=== PATIENT | male | born 1965 | race African-American/Black ===

== ENCOUNTER 2019-01-19 15:40 | Observation (INO) | payer OTHER ==
[2019-01-19] VITALS (14 sets, daily range): BP systolic 122–138; BP diastolic 70–89
[~2019-01-19] VITALS: Ht 190.5 cm; Wt 117.0 kg
--- NOTE | ~2019-01-19 | H ---
[address] [address] HISTORY AND PHYSICAL Name: CHAD SHEPHERD Room: [address] Omari Chong#: [id number] Admission: 01/19/19 Attend Phys: Guero Chen MD Discharge: 01/20/19 Date of : 69 Report #: [id number] THIS REPORT FOR: //name// Please refer to the History and Physical performed in the physician's office. By: 0653Medical Records Staff JAMIA /JOEY
[2019-01-19 16:07] LABS: HEMATOCRIT 47.5 % (42.0-52.0); MCH 32.3 pg (26.0-34.0); MCHC 33.7 g/dL (28.0-37.0); MCV 95.7 fL (80.0-100.0); MPV 7.9 fl. (7.2-11.1); RBC 4.97 mil/uL (4.50-6.00); RDW-CV 14.3 % (10.5-14.5); WBC 5.6 thou/uL (4.0-11.0)
[2019-01-19] MEDS ORDERED: ATORVASTATIN CA40 MG PO (16:07)
[2019-01-19] MEDS ORDERED: FLOMAX0.4 MG PO (16:07)
[2019-01-19 16:19] LABS: APTT 27.4 Seconds (25.0-31.3); PROTIME 10.1 Seconds (9.20-11.50)
[2019-01-19 16:25] LABS: CALCIUM 9.6 mg/dL (8.5-10.1); CREATININE 0.9 mg/dL (0.6-1.3); POTASSIUM 4.2 mmol/L (3.5-5.1)
--- NOTE | 2019-01-19 16:32 | EKG ---
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
[2019-01-20] VITALS: BP 126/76
[2019-01-20 04:00] VITALS: BP 125/78
[2019-01-20 05:22] LABS: ALBUMIN 2.9 g/dL (3.4-5.0); ALKALINE PHOSPHATASE 68 U/L (46-116); ANION GAP 8 mmol/L (7-16); BUN 9 mg/dL (7-18); CALCIUM 8.6 mg/dL (8.5-10.1); CHLORIDE 106 mmol/L (98-107); CO2 27 mmol/L (21-32); GLUCOSE 89 mg/dL (70-99); POTASSIUM 3.6 mmol/L (3.5-5.1); SGOT 23 U/L (15-37); SGPT 25 U/L (30-65); SODIUM 141 mmol/L (136-145); TOTAL BILIRUBIN 0.8 mg/dL (<0.1-1.0)
[2019-01-20 05:43] LABS: CHOLESTEROL 171 mg/dL (<200); HDL CHOLESTEROL 52 mg/dL (>40); LDL CHOLESTEROL 106 mg/dL (<100); TC:HDL 3.3 Ratio (Not establshd); TRIGLYCERIDE 66 mg/dL (<150); VLDL 13 mg/dL (<40)
[2019-01-20 05:47] LABS: SERUM ASSESSMENT CLEAR
[2019-01-20 08:00] VITALS: BP 131/77
[2019-01-20 08:33] VITALS: BP 125/78
[2019-01-20] MEDS ORDERED: BRILINTA90 MG PO (08:45)
[2019-01-20] MEDS ORDERED: LOPRESSOR25 PO (08:45)
[2019-01-20] MEDS ORDERED: ASPIR 8181 MG PO (08:45)
[2019-01-20 09:17] VITALS: BP 125/78
--- NOTE | 2019-01-20 11:54 | EKG ---
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: AB : 1965 Requested By: Guero Chen Order Number: [id number] Reading MD: Jhony Keane Measurements Intervals [place] Rate: 68 P: 59 GA: 233 QRS: 38 QRSD: 82 T: 21 QT: 371 QTc: 395 Interpretive Statements Sinus rhythm Prolonged GA interval ST elev, probable normal early repol pattern Compared to ECG 01/19/2019 16:14:38 no change Electronically Signed On 01-20-2019 11:54:23 CDT by Jhony Keane [email or web address] <ELECTRONICALLY SIGNED> By: Jhony Keane MD, [facility] 01/20/19 1154 1908 1908 Jhony Keane MD, [facility] /EPI
--- NOTE | 2019-01-20 11:58 | EKG ---
[place] [address] ELECTROCARDIOGRAM REPORT Name: CHAD SHEPHERD Room: [address]#: [id number] Admission: 01/19/19 Attend Phys: Guero Chen MD Discharge: 01/20/19 Date of : 69 Report #: [id number] THIS REPORT FOR: //name// [facility] Test Date: 2019-01-20 Test Time: 05:23:34 Pat Name: CHAD SHEPHERD Department: Room: [facility] Gender: M Check Clerk: [facility] : 1965 Requested By: Guero Chen Order Number: [id number] Reading MD: Jhony Keane Measurements Intervals [place] Rate: 71 P: 50 TN: 212 QRS: 40 QRSD: 82 T: -11 QT: 368 QTc: 400 Interpretive Statements Sinus rhythm Prolonged [place] interval Borderline T abnormalities, inferior leads Compared to ECG 01/19/2019 16:14:38 no change Electronically Signed On 01-20-2019 11:58:22 CDT by Jhony Keane [email or web address] <ELECTRONICALLY SIGNED> By: Jhony Keane MD, [facility] 01/20/19 1158 0523 0523 Jhony Keane MD, [facility] /EPI
--- NOTE | 2019-01-21 13:47 | EKG ---
[place] [address] ELECTROCARDIOGRAM REPORT Name: CHAD SHEPHERD Room: [address]#: [id number] Admission: 01/19/19 Attend Phys: Guero Chen MD Discharge: 01/20/19 Date of : 69 Report #: [id number] THIS REPORT FOR: //name// [facility] Test Date: 2019-01-20 Test Time: 08:36:55 Pat Name: CHAD SHEPHRED Department: Room: [address] Gender: M Banana Carrier: : 1965 Requested By: Guero Chen Order Number: [id number] Reading MD: Jhony Keane Measurements Intervals [place] Rate: 71 P: 54 WA: 205 QRS: 29 QRSD: 80 T: -2 QT: 379 QTc: 412 Interpretive Statements Sinus rhythm Borderline prolonged [place] interval Borderline T abnormalities, inferior leads Compared to ECG 01/20/2019 05:23:34 No significant changes Electronically Signed On 01-21-2019 13:47:23 CDT by Jhony Keane [email or web address] <ELECTRONICALLY SIGNED> By: Jhony Keane MD, [facility] 01/21/19 1347 0836 0836 Jhony Keane MD, [facility] /EPI
--- NOTE | 2019-01-22 08:39 | D ---
[address] [address] DISCHARGE SUMMARY Name: CHAD SHEPHERD Room: [address] Omari Chong#: [id number] Admission: 01/19/19 Attend Phys: Guero Chen MD Discharge: 01/20/19 Date of : 69 Report #: [id number] THIS REPORT FOR: //name// CC: Dr. Iveth Benitez DISCHARGE DIAGNOSES: 1. Coronary artery disease. 2. Unstable angina. 3. Hyperlipidemia. PROCEDURES DURING THE HOSPITALIZATION: 1. Coronary angiography. 2. Left heart catheterization. 3. Left ventriculography. 4. Percutaneous coronary intervention to the first obtuse marginal branch. 5. Percutaneous coronary intervention to the mid left anterior descending coronary artery. 6. Telemetry monitoring. HOSPITAL COURSE: The patient was admitted to the hospital with progressive unstable angina. Cardiac catheterization revealed multivessel disease. The patient has normal left ventricular systolic function by left ventriculography. Left ventricular end-diastolic pressure was 11 mmHg. The patient underwent percutaneous coronary intervention first to a very large first obtuse marginal branch with a high takeoff from the circumflex that was 99% stenosed. The patient had a 2.5 x 18 mm and a 2.5 x 12 mm stent placed, with excellent result. The patient then had a 90% lesion in the mid LAD, for which a 3.0 x 18 mm stent was placed, with excellent result. The patient has residual disease in a diagonal, mid circumflex and PDA branch of the right coronary artery, which will be considered for staged intervention. The day following intervention, the access site and the radial artery and right groin were well healed. The patient was without cardiac complaint. Vital signs remained stable throughout hospital stay. DISCHARGE MEDICATIONS: Aspirin 81 mg daily, Brilinta 90 mg b.i.d., metoprolol tartrate 25 mg one-half tablet p.o. b.i.d. and atorvastatin 40 mg daily. DISPOSITION: The patient is to follow up at the Cardiology office in 1 week. <ELECTRONICALLY SIGNED> By: Guero Chen MD, FACC 01/22/19 0839 0837 1715Micpark Chen MD, FACC /nt
--- NOTE | 2019-01-22 14:23 | CARD ---
[address] [address] CARDIAC CATH REPORT Name: CHAD SHEPHERD Room: [address] Omari Chong#: [id number] Admission: 01/19/19 Attend Phys: Guero Chen MD Discharge: 01/20/19 Date of : 69 Report #: [id number] THIS REPORT FOR: //name// APPROVED REPORT Study performed: 01/19/2019 15:59:30 Patient Details Patient Status: Out-Patient Room #: The patient is a 54 year-old male Event Personnel Guero Chen Toaster Operator, Viv Hui RN Director Video, Johan Lilly (R) Monitor, Nishant Fishman Scrub, Bruce Rose Profiler Operator Procedures Performed MINAL Place w/wo Plasty Addl BR OM 1., MINAL Place w/wo Plasty Single LAD , , Left Heart Catheterization left ventricular angiography and selective coronary angiography Indication Unstable angina Risk Factors Hypercholesterolemia Admission/Lab Medications/Medications given during procedure Aspirin, Glycoprotein IllbIlla Inhibitors Procedure Narrative The patient was brought electively to the Cardiac Catheterization Laboratory and was prepped and draped in a sterile manner. The right femoral was infiltrated with 2% Lidocaine subcutaneous anesthesia. A 6fr Ultimum Sheath sheath was inserted into the right femoral artery. Coronary angiography was performed using coronary diagnostic catheters. The right coronary system was accessed and visualized with a Diagnostic [place] 4.0 6fr catheter. The left coronary system was accessed and visualized with a DiagnosticTiger 4.0 6fr catheter. The left ventricle was accessed and visualized with a Diagnostic PC: Pig 6fr catheter. Left ventricular/Aortic Valve gradient assessed via catheter pullback. Pre-demployment femoral angiogram was performed . Closure device was deployed with a Fr Angioseal STS 6Fr. The patient tolerated the procedure well and there were no complications associated with the procedure. [place] [address] CARDIAC CATH REPORT Name: CHAD SHEPHERD Room: [address] M.RYuan#: [id number] Admission: 01/19/19 Attend Phys: Guero Chen MD Discharge: 01/20/19 Date of : 69 Report #: [id number] Intraoperative Conscious Sedation Sedation start time: 16:46 Case end Time: 18:12 Fentanyl 75 mcg Versed 3 mg Fluoro Time: 25.6 minutes Dose: DAP 720545 cGycm2 3873 mGy Contrast Type and Amount: Visipaque 500 ml Diagnostic Cath Left Main 0% narrowing LAD 40% proximal narrowing with 75% tubular mid vessel narrowing with 90% stenosis of a subbranch of a prominent septal sled maker Circumflex 80-90% mid vessel stenosis, this being a nondominant vessel with 90% eccentric narrowing throughout the first marginal branch of the circumflex Right Coronary Large dominant vessel with 90% proximal posterior descending stenosis and 40% mid posterolateral branch narrowing Hemodynamics The aortic pressure is 95/71 mmHg with a mean of 83 mmHg. The left ventricular pressure is 104/2 mmHg with a mean of mmHg. The left ventricular end diastolic pressure is 11 mmHg. There was no gradient across the aortic valve upon pullback. PCI Technique Lesion Anticoagulation was achieved with Angiomax. Patient was preloaded with Angiomax IV 17 ml. Percutaneous coronary intervention was performed on the first obtuse marginal branch segment. The lesion stenosis prior to intervention was 90% with SONY 3 flow. A 6F XB LAD 3.5 Guide Catheter was used to engage the ostium. A IG: ProwaterFlex 180CM Interventional Guidewire was used to cross the lesion. BALLOON DILATION A Balloon catheter Mini Trek RX 2.0 X 12 was inserted and inflated up to 12.00atm for 9seconds. Additional Inflation: 14.00atm for 11seconds. Additional Inflation: 14.00atm for 8seconds. STENT DEPLOYMENT A drug-eluting stent [place] RX Stent 2.5X26mm was inserted and inflated up to 10.00atm for 13seconds. Additional Inflation: 15.00atm for 14seconds. Additional Inflation: 16.00atm [place] 11[place]. [place] [address] CARDIAC CATH REPORT Name: CHAD SHEPHERD Room: [address] M.RYuan#: [id number] Admission: 01/19/19 Attend Phys: Guero Chen MD Discharge: 01/20/19 Date of : 69 Report #: [id number] POST STENT DEPLOYMENT BALLOON DILATION A Balloon catheter NC Trek RX 2.5 X 8 was inserted and inflated up to 15.00atm for 7seconds. Additional Inflation: 16.00atm for 9seconds. Additional Inflation: 15.00atm for 9seconds. Final angiography reveals 10 % stenosis with SONY 3 flow. PCI Technique Lesion 2 Percutaneous Coronary Intervention was performed on the mid left anterior descending artery segment. Patient was preloaded with Angiomax IV 17 ml. Percutaneous coronary intervention was performed on the mid left anterior descending artery segment. The lesion stenosis prior to intervention was 75% with SONY 3 flow. A 6F XB LAD 3.5 Guide Catheter was used to engage the ostium. A IG: ProwaterFlex 180CM Interventional Guidewire was used to cross the lesion. Balloon Dilation A Balloon catheter Trek RX 2.75 X 12 was inserted and inflated up to 10.00atm for 12seconds. Additional Inflation: 10.00atm for 9seconds. Stent Deployment A drug-eluting stent Krystian RX Stent 3.0X18mm was inserted and inflated up to 12.00atm for 14seconds. Additional Inflation: 15.00atm for 11seconds. Additional Inflation: 16.00atm for 11seconds. Final angiography reveals 0 % stenosis with SONY 3 flow. Conclusion #1 significant coronary artery disease characterized by the following: A 40% proximal with 75% mid LAD stenosis B 80-90% stenosis of midportion of the nondominant circumflex with 90% eccentric tortuous narrowing throughout the prominent first marginal branch of the circumflex C large dominant right coronary artery with 90% proximal posterior descending branch stenosis and 40% mid posterolateral branch stenosis #2 normal left ventricular systolic function, estimated ejection fraction being 65% [address] [address] CARDIAC CATH REPORT Name: CHAD SHEPHERD Room: [address] Omari Chong#: [id number] Admission: 01/19/19 Attend Phys: Guero Chen MD Discharge: 01/20/19 Date of : 69 Report #: [id number] #3 normal left-sided hemodynamics study #4 successful percutaneous coronary intervention with deployment of sequential drug-eluting stents at the site of 90% stenosis in the first marginal branch of the circumflex with 10% residual narrowing and SONY-3 flow the distal vessel #5 successful percutaneous coronary intervention with deployment of drug-eluting stent at site of 75% tubular mid LAD stenosis with 0% residual narrowing and SONY-3 flow to the distal vessel Recommendations Cardiac Risk Reduction Program Aggressive Medical Therapy Medications Administered Aspirin (any) Ticagrelor Diagnostic Cath Approved by: Guero Chen MD Date/Time: 01/22/2019 14:20:47 <ELECTRONICALLY SIGNED> By: Bruce Rose MD, FACC 01/22/19 1422 142 1422Bruce Rose MD, FACC /INF
== END 2019-01-20 11:30 | disposition home or self-care (01) ==
LOC: M.CL 15:40 → M.TBA-ER 18:30 → M.2W 18:48
PROVIDERS: ADMIT Internal Medicine Cardiovascular Disease
DX: I25.110 Atherosclerotic heart disease of native coronary artery with unstable angina pectoris (principal); E78.5 Hyperlipidemia, unspecified; E78.00 Pure hypercholesterolemia, unspecified

== ENCOUNTER 2019-03-02 13:59 | Observation (INO) | payer OTHER ==
[2019-03-02] VITALS (10 sets, daily range): BP systolic 119–153; BP diastolic 78–99
[~2019-03-02] VITALS: Ht 188 cm; Wt 112.5 kg
--- NOTE | ~2019-03-02 | D ---
[address] [address] DISCHARGE SUMMARY Name: CHAD SHEPHERD Room: [address] Omari Chong#: [id number] Admission: 03/02/19 Attend Phys: Bruce Rose MD, Discharge: 03/03/19 Date of : 69 Report #: [id number] THIS REPORT FOR: //name// CC: Bruce Pollardon Aprilaj Emmanuel DATE OF SERVICE: 03/03/2019 DISCHARGE DIAGNOSES: 1. Unstable angina. 2. Coronary artery disease. 3. Hyperlipidemia. 4. Recent percutaneous coronary intervention. PROCEDURES DURING THE HOSPITALIZATION: 1. Left heart catheterization with coronary angiography. 2. Percutaneous coronary intervention to the mid circumflex coronary artery and posterior descending branch of the right coronary artery. HOSPITAL COURSE: The patient was admitted to the hospital with progressive chest pain. He had had recent intervention to left anterior descending coronary artery and obtuse marginal branch. The patient had residual disease and continued to have significant chest pain. The patient was brought in for intervention. The patient underwent percutaneous coronary intervention to the mid circumflex coronary artery and the PDA branch of the right coronary artery with drug-eluting stents placed to both sites with excellent result. The patient had no complications with the procedure. At the time of discharge, he was pain free. DISCHARGE DIAGNOSES: As outlined above. DISCHARGE MEDICATIONS: Atorvastatin 40 mg p.o. every day, Flomax 0.4 mg p.o. every day, metoprolol tartrate 25 mg p.o. b.i.d., Brilinta 90 mg p.o. b.i.d., aspirin 81 mg daily. DISPOSITION: The patient is to follow up with the Cardiology office in 4 weeks. By: 0827 1819Guero Chen MD, FACC /nt
[~2019-03-02 13:59] MED LIST: ASPIR 8181 MG PO; ATORVASTATIN CA40 MG PO; BRILINTA90 MG PO; FLOMAX0.4 MG PO; LOPRESSOR25 PO
[2019-03-02 14:49] LABS: HEMATOCRIT 49.5 % (42.0-52.0); MCH 32.3 pg (26.0-34.0); MCHC 34.4 g/dL (28.0-37.0); MPV 8.3 fl. (7.2-11.1); RBC 5.26 mil/uL (4.50-6.00); RDW-CV 12.8 % (10.5-14.5); WBC 5.5 thou/uL (4.0-11.0)
[2019-03-02 14:54] LABS: ANION GAP 8 mmol/L (7-16); BUN 17 mg/dL (7-18); CALCIUM 9.6 mg/dL (8.5-10.1); CHLORIDE 106 mmol/L (98-107); CO2 27 mmol/L (21-32); CREATININE 1.2 mg/dL (0.6-1.3); GLUCOSE 132 mg/dL (70-99); POTASSIUM 3.5 mmol/L (3.5-5.1); SODIUM 141 mmol/L (136-145)
[2019-03-02 14:56] LABS: APTT 27.3 Seconds (25.0-31.3); PROTIME 10.2 Seconds (9.20-11.50)
[2019-03-02 15:00] LABS: CHOLESTEROL 140 mg/dL (<200); HDL CHOLESTEROL 60 mg/dL (>40); LDL CHOLESTEROL 63 mg/dL (<100); SERUM ASSESSMENT CLEAR; TC:HDL 2.3 Ratio (Not establshd); TRIGLYCERIDE 89 mg/dL (<150); VLDL 18 mg/dL (<40)
--- NOTE | 2019-03-02 18:39 | NUR ---
PT ADMITTED TO TELEMETRY ROOM 231 AT APPROXIMATELY 1546 AFTER CATH PLACEMENT. VSS. PT DENIES PAIN. TRACING SR ON MONITOR. PT EDUCATED ON LYING FLAT AND STILL UNTIL 2330. DRESSING TO RIGHT GROIN C/D/I, NO HEMATOMA NOTED.
[2019-03-03 04:00] VITALS: BP 122/77
[2019-03-03 04:41] LABS: HEMATOCRIT 46.5 % (42.0-52.0); MCH 32.1 pg (26.0-34.0); MCHC 34.4 g/dL (28.0-37.0); MCV 93.1 fL (80.0-100.0); MPV 8.5 fl. (7.2-11.1); WBC 3.9 thou/uL (4.0-11.0)
[2019-03-03 05:10] LABS: ALBUMIN 3.2 g/dL (3.4-5.0); CALCIUM 8.4 mg/dL (8.5-10.1); POTASSIUM 3.9 mmol/L (3.5-5.1); TOTAL BILIRUBIN 0.7 mg/dL (<0.1-1.0); TOTAL PROTEIN 6.5 g/dL (6.4-8.2); TROPONIN-I LEVEL 0.12 ng/mL (<0.06)
--- NOTE | 2019-03-03 06:07 | NUR ---
PT IS ABLE TO COMMUNICATE HIS NEEDS TO STAFF EFFECTIVELY. HE HAS DENIED THE NEED FOR PAIN MEDICATION UP TO THIS TIME. RIGHT GROIN CATH SITE SHOWS NO OBSERVABLE EVIDENCE OF HEMATOMA UP TO THIS TIME; DRESSING IS C/D/I UP TO THIS TIME WELL.
[2019-03-03 07:00] VITALS: BP 126/84
[2019-03-03] MEDS ORDERED: COLACE100 MG PO (08:43)
[2019-03-03] MEDS ORDERED: NITROGLYCERIN0.4 MG SUBLING (08:44)
[2019-03-03 08:46] VITALS: BP 126/84
--- NOTE | 2019-03-03 08:54 | NUR ---
INITAL ASSESSMENT COMPLETED CHARTED. VSS. PT TRACING SR ON MONITOR. DRESSING TO RIGHT GROIN C/D/I. PT DENIES PAIN, CP, SOA, DIZZINESS, N/V/D. NO HEMATOMA NOTED. PT DENIES ANY FURTHER NEEDS AT THIS TIME. HOURLY ROUNDING FOR PT SAFETY. CLW.R
[2019-03-03 09:27] VITALS: BP 126/84
[2019-03-03 10:09] VITALS: BP 126/84
--- NOTE | 2019-03-03 10:11 | CARD ---
[address] [address] CARDIAC CATH REPORT Name: CHAD SHEPHERD Room: [address] Omari MDelicia#: [id number] Admission: 03/02/19 Attend Phys: Bruce Rose MD, Discharge: Date of : 69 Report #: [id number] THIS REPORT FOR: //name// APPROVED REPORT Study performed: 03/02/2019 16:00:23 Patient Details The patient is a 54 year-old male Event Personnel Guero Chen Sales Estimator, Viv Hui RN RN, Julia Mejía RN Monitor, Nishant Fishman MUCK BOSS Scrub, Bruce Rose Salesperson Household Appliances Procedures Performed Art Access - R femoral artery* ; active coronary arteriography, PTCA with Stenting Indication Unstable angina Risk Factors Hypercholesterolemia, Hypertension Previous Procedures/Diagnoses Previous PCI Admission/Lab Medications/Medications given during procedure Platelet Aff. Inhib., Angiomax bolus and infusion Procedure Narrative The patient was brought electively to the Cardiac Catheterization Laboratory and was prepped and draped in a sterile manner. The right femoral was infiltrated with 2% Lidocaine subcutaneous anesthesia. A Soso 6 FR sheath was inserted into the right femoral artery. Coronary angiography was performed using coronary diagnostic catheters. The right coronary system was accessed and visualized with a 6F JR 4.0 catheter. The left coronary system was accessed and visualized with a 6F XB LAD 3.5 catheter. Pre-demployment femoral angiogram was performed . Closure device was deployed with a 6 Fr Angioseal STS 6Fr. The patient tolerated the procedure well and there were no complications associated with the procedure. Intra[place] [address] CARDIAC CATH REPORT Name: CHAD SHEPHERD Room: [address] Omari Chong#: [id number] Admission: 03/02/19 Attend Phys: Bruce Rose MD, Discharge: Date of : 69 Report #: [id number] Sedation start time: 1636 Case end Time: 1723 Fentanyl 50 mcg Versed 2 mg Fluoro Time: 14.0 minutes Dose: DAP 156885 cGycm2 3252 mGy Contrast Type and Amount: Visipaque 400 ml Diagnostic Cath Left Main 0% narrowing LAD 40% ostial proximal LAD narrowing with widely patent mid LAD stent Circumflex 90% narrowing of the midportion of the nondominant circumflex with a widely patent first marginal stent Right Coronary 30% proximal and distal right coronary narrowing with 90% tubular narrowing of the proximal portion of the prominent posterior descending branch Left Ventriculography Left Ventriculography was not performed. Hemodynamics The aortic pressure is 130/70 mmHg with a mean of mmHg. PCI Technique Lesion Anticoagulation was achieved with Angiomax Drip. Patient was preloaded with Angiomax IV 16.5 ml. Percutaneous coronary intervention was performed on the mid circumflex artery segment. The lesion stenosis prior to intervention was 90% with SONY 3 flow. A 6F XB LAD 3.5 Guide Catheter was used to engage the ostium. A IG: BMW 190cm Interventional Guidewire was used to cross the lesion. BALLOON DILATION A Balloon catheter Mini Trek RX 2.0 X 12 was inserted and inflated up to 12.00atm for 27seconds. Additional Inflation: 15.00atm for 21seconds. STENT DEPLOYMENT A drug-eluting stent Krystian RX Stent 2.0X12mm was inserted and inflated up to 10.00atm for 11seconds. Additional Inflation: 12.00atm for 8seconds. Additional Inflation: 14.00atm for 11seconds. Final angiography reveals 10 % stenosis with SONY 3 flow. PCI Technique Lesion 2 Percutaneous Coronary Intervention was [place] [address] CARDIAC CATH REPORT Name: CHAD SHEPHERD Room: [address]#: [id number] Admission: 03/02/19 Attend Phys: Bruce Rose MD, Discharge: Date of : 69 Report #: [id number] posterior descending artery. Patient was preloaded with Angiomax IV 16.5 ml. Percutaneous coronary intervention was performed on the posterior descending branch of the right coronary artery. The lesion stenosis prior to intervention was 90% with SONY 3 flow. A 6F JR 4.0 Guide Catheter was used to engage the ostium. A IG: BMW 190cm Interventional Guidewire was used to cross the lesion. Stent Deployment A drug-eluting stent Krystian RX Stent 2.0X12mm was inserted and inflated up to 10.00atm for 11seconds. Additional Inflation: 14.00atm for 11seconds. Additional Inflation: 16.00atm for 10seconds. Final angiography reveals 0 % stenosis with SONY 3 flow. Conclusion #1 significant coronary artery disease characterized by the following: A 40% ostial proximal LAD narrowing with widely patent mid LAD stent B 90% narrowing in the midportion of the nondominant circumflex with a widely patent first marginal stent C 30% proximal and distal right coronary artery narrowing with 90% proximal posterior descending branch stenosis #2 normal systemic pressure throughout the study #3 successful percutaneous coronary intervention with deployment of drug-eluting stent at site of 90% mid circumflex stenosis with 10% residual narrowing and SONY-3 flow to the distal vessel #4 successful percutaneous coronary intervention with deployment of drug-eluting stent at site of 90% proximal posterior descending branch stenosis in the right coronary artery with 0% residual narrowing and SONY-3 flow the distal vessel Recommendations Cardiac Risk Reduction Program Aggressive Medical Therapy Medications Administ[place] [address] CARDIAC CATH REPORT Name: CHAD SHEPHERD Room: [address] Omari Chong#: [id number] Admission: 03/02/19 Attend Phys: Bruce Rose MD, Discharge: Date of : 69 Report #: [id number] Diagnostic Cath Approved by: Guero Chen MD Date/Time: 03/03/2019 10:08:51 <ELECTRONICALLY SIGNED> By: Bruce Rose MD, [facility] 03/03/19 1011 1011 1011Jokarla Rose MD, FAC /INF
--- NOTE | 2019-03-03 10:30 | EKG ---
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
--- NOTE | 2019-03-05 12:31 | EKG ---
[place] [address] ELECTROCARDIOGRAM REPORT Name: CHAD SHEPHERD Room: [address]#: [id number] Admission: 03/02/19 Attend Phys: Bruce Rose MD, Discharge: 03/03/19 Date of : 69 Report #: [id number] THIS REPORT FOR: //name// [facility] Test Date: 2019-03-02 Test Time: 18:15:27 Pat Name: CHAD SHEPHERD Department: Room: [facility] Gender: M Community Services Officer: : 1965 Requested By: Guero Chen Order Number: [id number] Boaz MD: Bruce Rose Measurements Intervals [place] Rate: 64 P: 57 NE: 223 QRS: 39 QRSD: 91 T: -31 QT: 404 QTc: 417 Interpretive Statements Sinus rhythm Prolonged NE interval Nonspecific T abnormalities, inferior leads Compared to ECG 03/02/2019 14:33:53 T-wave abnormality now present Electronically Signed On 03-05-2019 12:31:16 CDT by Bruce Rose [email or web address] <ELECTRONICALLY SIGNED> By: Bruce Rose MD, [facility] 03/05/19 1231 1815 181 Bruce Rose MD, [facility] /EPI
--- NOTE | 2019-03-05 12:32 | EKG ---
[place] [address] ELECTROCARDIOGRAM REPORT Name: CHAD SHEPHERD Room: [address]#: [id number] Admission: 03/02/19 Attend Phys: Bruce Rose MD, Discharge: 03/03/19 Date of : 69 Report #: [id number] THIS REPORT FOR: //name// [facility] Test Date: 2019-03-03 Test Time: 03:14:58 Pat Name: CHAD SHEPHERD Department: Room: [facility] Gender: M [employer]: CK : 1965 Requested By: Guero Chen Order Number: [id number] Boaz MD: Bruce Rose Measurements Intervals [place] Rate: 59 P: 31 MA: 216 QRS: 31 QRSD: 82 T: 3 QT: 406 QTc: 403 Interpretive Statements Sinus rhythm Prolonged MA interval Compared to ECG 03/02/2019 14:33:53 No significant changes Electronically Signed On 03-05-2019 12:32:37 CDT by Bruce Rose [email or web address] <ELECTRONICALLY SIGNED> By: Bruce Rose MD, [facility] 03/05/19 1232 3 3 Bruce Rose MD, FAC /EPI
--- NOTE | 2019-03-06 14:44 | NUR ---
Second follow up phone call. Patient works in [employer]. Works very long hours. Wishes to attend [facility] but is unable due to work schedule. Even is unable to attend facility near his work. 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 States he would do that.
== END 2019-03-03 10:42 | disposition home or self-care (01) ==
LOC: M.CL 13:59 → M.TBA-CV 17:32 → M.2W 17:46
PROVIDERS: Internal Medicine Cardiovascular Disease; ADMIT Internal Medicine
DX: I25.110 Atherosclerotic heart disease of native coronary artery with unstable angina pectoris (principal); E78.5 Hyperlipidemia, unspecified; Z98.61 Coronary angioplasty status; E78.00 Pure hypercholesterolemia, unspecified; I10 Essential (primary) hypertension